=== PATIENT | female | born 1955 | race Caucasian/White ===

== ENCOUNTER 2018-11-11 12:47 | Emergency (ER) | payer OTHER ==
[~2018-11-11] VITALS: Ht 170.2 cm; Wt 127.0 kg
--- NOTE | 2018-11-11 13:12 | ED Lower Extremity ---
General Chief Complaint: Lower Extremity Stated Complaint: RT ANKLE PAIN Nursing Triage Note: Patient c/o right ankle pain. States she did a lot of walking yesterday but there was no obvious injury to the ankle. Today she states that her ankle is so painful she cannot bear weight and it is painful at the very slightest of touch. Nursing Sepsis Screen: No Definite Risk Source: patient, family Exam Limitations: no limitations History of Present Illness Date Seen by Provider: Nov 11, 2018 Time Seen by Provider: 13:09 Initial Comments 61-year-old white female presents with complaint of right ankle pain. Patient walked extensively on the previously fractured right ankle yesterday and had severe pain today precipitating her presentation to the emergency department. Past medical history of significance includes a history of gout. Patient takes medications on a daily basis to prevent the flare of the gout. Allergies and Home Medications Allergies Coded Allergies: prochlorperazine (Verified Allergy, Unknown, 11/11/18) Patient Home Medication List Home Medication List Reviewed: Yes Review of Systems Constitutional: No chills, No fever EENTM: no symptoms reported Respiratory: no symptoms reported Cardiovascular: no symptoms reported Gastrointestinal: no symptoms reported Genitourinary: no symptoms reported Musculoskeletal: No back pain; joint pain (ankle) Skin: no symptoms reported; No change in color, No rash Psychiatric/Neurological: No Symptoms Reported Past Jobvwgx-Kochvj-Gwlttt Hx Past Med/Social Hx: Reviewed Nursing Past Med/Soc Hx Patient Social History Recent Foreign Travel: No Contact w/Someone Who Travel: No Recent Infectious Disease Expo: No Physical Exam Vital Signs Vital Signs - First Documented 11/11/18 12:52 Temp 98.2 Pulse 91 Resp 18 B/P (MAP) 142/65 (90) Pulse Ox 95 O2 Delivery Room Air Capillary Refill : Less Than 3 Seconds Height, Weight, BMI Height: 5'7.00" Weight: 280lbs. oz. 127.858069dv; BMI Method:Stated General Appearance: WD/WN, mild distress Neck: normal inspection Cardiovascular: regular rate, rhythm Respiratory: no respiratory distress Ankles: right ankle pain Neurologic/Tendon: normal sensation, normal motor functions Neurologic/Psychiatric: no motor/sensory deficits, alert Skin: normal color, warm/dry Progress/Results/Core Measures Results/Orders Lab Results Laboratory Tests Test 11/11/18 13:25 Range/Units My Orders Orders - CA SHAIKH MD Fentanyl Injection (Sublimaze Injection (11/11/18 13:15) Uric Acid (11/11/18 13:06) Erythrocyte Sedimentation Rate (11/11/18 13:06) Cbc With Automated Diff (11/11/18 13:06) Ankle 3 View Right (11/11/18 13:06) Medications Given in ED Current Medications Medications Dose Ordered Sig/Meir Route Start Time Stop Time Status Last Admin Dose Admin Fentanyl Citrate 50 mcg ONCE ONCE IM 11/11/18 13:15 11/11/18 13:16 DC 11/11/18 13:19 50 MCG Vital Signs/I&O 11/11/18 12:52 Temp 98.2 Pulse 91 Resp 18 B/P (MAP) 142/65 (90) Pulse Ox 95 O2 Delivery Room Air Blood Pressure Mean: 90 Progress Progress Note : Time: 14:24 Progress Note X-ray of the right ankle demonstrated severe degenerative changes but no fracture. Patient received 50 g of fentanyl IM with significant improvement in her pain. Departure Impression Primary Impression: Ankle pain Qualified Codes: M25.571 - Pain in right ankle and joints of right foot Disposition: HOME, SELF-CARE Condition: Improved Departure-Patient Inst. Decision time for Depature: 14:25 Referrals: YUN JEAN (PCP) Primary Care Physician Patient Instructions: Osteoarthritis Add. Discharge Instructions: Vicodin for pain. Ice alternating with moist heat to the ankle. Close follow- up with your caregiver on Monday. Return if any problems or questions. Limit weightbearing. All discharge instructions reviewed with patient and/or family. Voiced understanding. Scripts Hydrocodone/Acetaminophen (Vicodin 5-300 mg Tablet) 1 Each Tablet 1-2 EACH PO Q6H PRN for PAIN-MODERATE MDD 10 for 7 Days, #20 TAB Prov: CA SHAIKH MD 11/11/18 CA SHAIKH MD Nov 11, 2018 13:11
[2018-11-11] MEDS ORDERED: fentaNYL INJECTION 100 MCG/2 ML AMP IM ONE (13:15)
--- NOTE | 2018-11-11 14:09 | Diagnostic Imaging Report ---
EXAMINATION: Right ankle radiographs, 3 views. COMPARISON: None. HISTORY: 63-year-old female, right ankle pain. FINDINGS: There are well-corticated ossifications adjacent to the distal fibula most likely relating to sequela of remote prior injury. There are also well-corticated areas of ossification adjacent to the medial malleolus likely relating to sequela of remote prior injury. The alignment of the ankle mortise is unremarkable. There is severe tibiotalar joint space loss with ossified intra-articular body posteriorly measuring 9 x 9 mm in size. There appear to be advanced posterior subtalar arthritic changes. There is no large tibiotalar joint effusion. There is no identified acute fracture. There is a very small calcaneal heel spur. IMPRESSION: 1. 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 2. Advanced posterior subtalar arthritis. 3. Well-corticated ossifications adjacent to the distal fibula medial malleolus compatible with sequela of remote prior injury. 4. No identified acute fracture or bone malalignment. Dictated by: Dictated on workstation # [id number]
[2018-11-11] MEDS ORDERED: HYDR-3455 PO (14:27)
[2018-11-11 14:50] VITALS: BP 142/65
[2018-11-11 14:54] LABS: BASOPHILS % (AUTO) 0 % (0-10); EOSINOPHILS % (AUTO) 1 % (0-10); HEMATOCRIT 43 % (35-52); LYMPHOCYTES % (AUTO) 30 % (12-44); MEAN CORPUSCULAR HEMOGLOBIN 30 PG (25-34); MEAN CORPUSCULAR HGB CONC 33 G/DL (32-36); MEAN CORPUSCULAR VOLUME 91 FL (80-99); MEAN PLATELET VOLUME 9.5 FL (7.4-10.4); MONOCYTES % (AUTO) 7 % (0-12); NEUTROPHILS # (AUTO) 8.1 X 10^3 (1.8-7.8); NEUTROPHILS % (AUTO) 61 % (42-75); PLATELET COUNT 335 10^3/uL (130-400); RED CELL DISTRIBUTION WIDTH 13.4 % (10.0-14.5); WHITE BLOOD COUNT 13.3 10^3/uL (4.3-11.0)
[2018-11-11 14:55] LABS: EOSINOPHILS # (AUTO) 0.2 10^3/uL (0.0-0.3); MONOCYTES # (AUTO) 0.9 X 10^3 (0.0-1.0)
[2018-11-11 15:14] LABS: ERYTHROCYTE SEDIMENTATION RATE 35 MM/HR (0-30)
== END 2018-11-11 14:50 | disposition home or self-care (01) ==
LOC: ER FS 12:49
DX: M25.571 Pain in right ankle and joints of right foot (principal); Z88.8 Allergy status to other drugs, medicaments and biological substances
CPT/HCPCS: 36415; 73610; 84550; 85025; 85652

== ENCOUNTER → 2018-11-27 | Outpatient (CLI) | payer OTHER ==
[~2018-11-27] MED LIST: HYDR-3455 PO
--- NOTE | 2018-11-27 17:28 | Diagnostic Imaging Report ---
INDICATION: Routine screening. COMPARISON: No prior mammograms are available for comparison. The current study was also evaluated with a Computer Aided Detection (CAD) system. 3-D tomosynthesis was also performed and reviewed. FINDINGS: No mass or malignant-appearing microcalcifications are seen. Axillae are unremarkable. IMPRESSION: No mammographic features suspicious for malignancy are identified. ACR BI-RADS Category 1: Negative. Result letter will be mailed to the patient. Note: At least 10% of breast cancer is not imaged by mammography. Dictated by: Dictated on workstation # [id number]
== END ==
LOC: RAD 09:22
PROVIDERS: ATTEND Nurse Practitioner
DX: Z12.31 Encounter for screening mammogram for malignant neoplasm of breast (principal)
CPT/HCPCS: 77067

== ENCOUNTER 2020-01-14 06:43 | Outpatient (RCR) | payer OTHER ==
[~2020-01-14] VITALS: Ht 170.2 cm; Wt 122.7 kg
[2020-01-14] MEDS ORDERED: ALLO100T PO (10:47)
[2020-01-14] MEDS ORDERED: ACHD5005 PO (10:47)
[2020-01-14] MEDS ORDERED: LOSA100T57 PO (10:47)
[2020-01-14] MEDS ORDERED: METF-865 PO ×2 (10:47)
[2020-01-14] MEDS ORDERED: VENL100T2 PO (10:47)
[2020-01-14] MEDS ORDERED: CYCL10TA9 PO (10:47)
[2020-01-14] MEDS ORDERED: ACET-168 PO (10:47)
[2020-01-14] MEDS ORDERED: ATOR40TA70 PO (10:47)
[2020-01-14] MEDS ORDERED: LEVO88TA54 PO (10:47)
[2020-01-14] MEDS ORDERED: MELA1TAB27 PO (10:47)
[2020-01-14] MEDS ORDERED: SERT100T8 PO (10:47)
[2020-01-14] MEDS ORDERED: OMEP20CA18 PO (10:47)
== END 2020-01-14 10:50 | disposition home or self-care (01) ==
LOC: PREOP 06:43
PROVIDERS: ATTEND Specialist
DX: Z01.818 Encounter for other preprocedural examination (principal)

== ENCOUNTER → 2020-01-15 | Outpatient (CLI) | payer OTHER ==
[~2020-01-15] MED LIST changes: +ACET-168 PO; +ACHD5005 PO; +ALLO100T PO; +ATOR40TA70 PO; +CYCL10TA9 PO; +LEVO88TA54 PO; +LOSA100T57 PO; +MELA1TAB27 PO; +METF-865 PO; +OMEP20CA18 PO; +SERT100T8 PO; +VENL100T2 PO
== END ==
LOC: LAB FS 10:00
PROVIDERS: ATTEND Specialist
DX: Z01.812 Encounter for preprocedural laboratory examination (principal); Z20.828 Contact with and (suspected) exposure to other viral communicable diseases
CPT/HCPCS: 87635

== ENCOUNTER 2020-01-17 06:47 | Day surgery (SDC) | payer OTHER ==
[~2020-01-17] VITALS: Ht 170 cm; Wt 122.0 kg
[2020-01-17] MEDS ORDERED: POVIDONE (BETADINE) OPHTH SOLN 5% 30 ML OP ONE (07:00)
[2020-01-17] MEDS ORDERED: MOXIFLOXACIN OPHTH SOLN 5 MG/ML 0.3 ML SYRINGE OP ONE (07:00)
[2020-01-17] MEDS ORDERED: LIDOCAINE PF 1% 2 ML VIAL IR PRN (07:00)
[2020-01-17] MEDS ORDERED: TIMOLOL MALEATE 0.5% 5 ML (TIMOPTIC) BTL OU PRN (07:00)
[2020-01-17 07:16] VITALS: BP 122/90
[2020-01-17] MEDS: TETRACAINE 0.5% OPHTH SOLN 4 ML BTL (SINGLE DOSE ONLY) OU PRN ×4 (07:22→07:40)
[2020-01-17] MEDS: PHENYLEPHRINE 10% OPHTH (NEO-SYN) 5 ML BTL OU SCH ×3 (07:30→07:40)
[2020-01-17] MEDS: TROPICAMIDE 1% OPH SOLN (MYDRIACYL) 15 ML BTL OP SCH ×3 (07:30→07:40)
[2020-01-17] MEDS ORDERED: MIDAZOLAM 2 MG/2 ML (VERSED) VIAL ONE (08:08)
--- NOTE | 2020-01-17 08:15 | Ophthalmologist Pre-Op Note ---
Pre-Operative Progress Note H&P Reviewed The H&P was reviewed, patient examined and no changes noted. Date H&P Reviewed: Jan 17, 2020 Time H&P Reviewed: 08:15 Pre-Op Dx Cataract, Right Eye HARPAL GILLESPIE MD Jan 17, 2020 08:15
[2020-01-17] MEDS ORDERED: acetaZOLAMIDE ER 500 MG CAP (DIAMOX SEQUELS) PO ONE (08:30)
--- NOTE | 2020-01-17 08:37 | Ophthalmology Operative Report ---
Cataract removal/placement IOL PREOPERATIVE DIAGNOSIS: Cataract Right Eye POSTOPERATIVE DIAGNOSIS: Cataract Right Eye PROCEDURE: Cataract removal and placement of posterior chamber implant, right eye SURGEON: Jose Gillespie ANESTHESIA: Topical with sedation COMPLICATIONS: None ESTIMATED BLOOD LOSS: Minimal DESCRIPTION OF PROCEDURE: After proper informed consent was obtained, the patient, a 64 female, was taken to the Operating Room and the right eye was anesthetized with tetracaine. The right eye was then prepped and draped in the usual manner. A wire lid speculum was placed. A paracentesis was made at the left hand position. Preservative free lidocaine was injected into the anterior chamber followed by viscoelastic. A clear corneal incision was made in the temporal position. A capsulorrhexis was preformed and the central nuclear and cortical material were removed. The posterior capsule was polished and Kai 25.5 AU00T0 IOL was placed into the capsular bag. The residual viscoelastic was aspirated and balanced saline solution was injected into the anterior chamber. Moxifloxacin was injected into the anterior chamber. The wound was checked and found to be water tight. The patient tolerated the procedure well without complications. JOSE GILLESPIE MD Jan 17, 2020 08:37
[2020-01-17 08:42] VITALS: BP 134/74
--- NOTE | 2020-01-17 12:19 | Anesthesia-General Post-Op ---
MAC Patient Condition Mental Status/LOC: Same as Preop Cardiovascular: Satisfactory Nausea/Vomiting: Absent Respiratory: Satisfactory Pain: Controlled Complications: Absent Post Op Complications Complications None Follow Up Care/Instructions Patient Instructions None needed. Anesthesiology Discharge Order Discharge Order Patient is doing well, no complaints, stable vital signs, no apparent adverse anesthesia problems. No complications reported per nursing. YOLANDA CABRAL CRNA Jan 17, 2020 12:19
== END 2020-01-17 08:47 ==
LOC: SDC 06:47
PROVIDERS: ATTEND Specialist
DX: H25.11 Age-related nuclear cataract, right eye (principal); E11.36 Type 2 diabetes mellitus with diabetic cataract; I10 Essential (primary) hypertension; F32.9 Major depressive disorder, single episode, unspecified; K21.9 Gastro-esophageal reflux disease without esophagitis; M06.9 Rheumatoid arthritis, unspecified; E78.00 Pure hypercholesterolemia, unspecified; M19.90 Unspecified osteoarthritis, unspecified site; F17.210 Nicotine dependence, cigarettes, uncomplicated; Z90.710 Acquired absence of both cervix and uterus; Z79.84 Long term (current) use of oral hypoglycemic drugs; Z79.899 Other long term (current) drug therapy; Z88.8 Allergy status to other drugs, medicaments and biological substances; Z80.0 Family history of malignant neoplasm of digestive organs
CPT/HCPCS: 82962

== ENCOUNTER 2020-01-20 06:12 | Outpatient (RCR) | payer OTHER | END 2020-01-21 11:02 | disposition home or self-care (01) | LOC: PREOP 06:12 | PROVIDERS: ATTEND Specialist | DX: Z01.818 Encounter for other preprocedural examination (principal) ==

== ENCOUNTER → 2020-01-21 | Outpatient (CLI) | payer OTHER | LOC: LAB FS 09:55 | PROVIDERS: ATTEND Specialist | DX: Z01.812 Encounter for preprocedural laboratory examination (principal); Z20.828 Contact with and (suspected) exposure to other viral communicable diseases | CPT/HCPCS: 87635 ==

== ENCOUNTER 2020-01-24 07:21 | Day surgery (SDC) | payer OTHER ==
[~2020-01-24] VITALS: Ht 170.2 cm; Wt 122.7 kg
[2020-01-24] MEDS ORDERED: TIMOLOL MALEATE 0.5% 5 ML (TIMOPTIC) BTL OU PRN (08:00)
[2020-01-24] MEDS: TETRACAINE 0.5% OPHTH SOLN 4 ML BTL (SINGLE DOSE ONLY) OU PRN ×4 (08:00→08:17)
[2020-01-24] MEDS ORDERED: LIDOCAINE PF 1% 2 ML VIAL IR PRN (08:00)
[2020-01-24] MEDS ORDERED: MOXIFLOXACIN OPHTH SOLN 5 MG/ML 0.3 ML SYRINGE OP ONE (08:00)
[2020-01-24] MEDS ORDERED: POVIDONE (BETADINE) OPHTH SOLN 5% 30 ML OP ONE (08:00)
[2020-01-24] MEDS: PHENYLEPHRINE 10% OPHTH (NEO-SYN) 5 ML BTL OU SCH ×3 (08:06→08:17)
[2020-01-24] MEDS: TROPICAMIDE 1% OPH SOLN (MYDRIACYL) 15 ML BTL OP SCH ×3 (08:06→08:17)
[2020-01-24 08:12] VITALS: BP 145/73
[2020-01-24] MEDS ORDERED: MIDAZOLAM 2 MG/2 ML (VERSED) VIAL ONE (08:47)
[2020-01-24] MEDS ORDERED: acetaZOLAMIDE ER 500 MG CAP (DIAMOX SEQUELS) PO ONE (09:00)
--- NOTE | 2020-01-24 09:01 | Ophthalmologist Pre-Op Note ---
Pre-Operative Progress Note H&P Reviewed The H&P was reviewed, patient examined and no changes noted. Date H&P Reviewed: Jan 24, 2020 Time H&P Reviewed: 09:01 Pre-Op Dx Cataract, Left Eye HARPAL GILLESPIE MD Jan 24, 2020 09:01
--- NOTE | 2020-01-24 09:24 | Ophthalmology Operative Report ---
Cataract removal/placement IOL PREOPERATIVE DIAGNOSIS: Cataract Left Eye POSTOPERATIVE DIAGNOSIS: Cataract Left Eye PROCEDURE: Cataract removal and placement of posterior chamber implant, left eye SURGEON: Jose Gillespie ANESTHESIA: Topical with sedation COMPLICATIONS: None ESTIMATED BLOOD LOSS: Minimal DESCRIPTION OF PROCEDURE: After proper informed consent was obtained, the patient, a 64 female, was taken to the Operating Room and the left eye was anesthetized with tetracaine. The left eye was then prepped and draped in the usual manner. A wire lid speculum was placed. A paracentesis was made at the left hand position. Preservative free lidocaine was injected into the anterior chamber followed by viscoelastic. A clear corneal incision was made in the temporal position. A capsulorrhexis was preformed and the central nuclear and cortical material were removed. The posterior capsule was polished and an Kai 25.5 AU00T0 was placed into the capsular bag. The residual viscoelastic was aspirated and balanced saline solution was injected into the anterior chamber. Moxifloxacin was injected into the anterior chamber. The wound was checked and found to be water tight. The patient tolerated the procedure well without complications. JOSE GILLESPIE MD Jan 24, 2020 09:24
[2020-01-24 09:35] VITALS: BP 152/77
--- NOTE | 2020-01-24 09:55 | Anesthesia-General Post-Op ---
MAC Patient Condition Mental Status/LOC: Same as Preop Cardiovascular: Satisfactory Nausea/Vomiting: Absent Respiratory: Satisfactory Pain: Controlled Complications: Absent Post Op Complications Complications None Follow Up Care/Instructions Patient Instructions None needed. Anesthesiology Discharge Order Discharge Order Patient is doing well, no complaints, stable vital signs, no apparent adverse anesthesia problems. No complications reported per nursing. JD GAN CRNA Jan 24, 2020 09:55
== END 2020-01-24 09:35 | disposition home or self-care (01) ==
LOC: SDC 07:21
PROVIDERS: ATTEND Specialist
DX: H25.12 Age-related nuclear cataract, left eye (principal); E11.36 Type 2 diabetes mellitus with diabetic cataract; I10 Essential (primary) hypertension; F32.9 Major depressive disorder, single episode, unspecified; K21.9 Gastro-esophageal reflux disease without esophagitis; M06.9 Rheumatoid arthritis, unspecified; E78.00 Pure hypercholesterolemia, unspecified; F17.210 Nicotine dependence, cigarettes, uncomplicated; Z79.899 Other long term (current) drug therapy; Z79.84 Long term (current) use of oral hypoglycemic drugs; Z88.8 Allergy status to other drugs, medicaments and biological substances; Z80.0 Family history of malignant neoplasm of digestive organs
CPT/HCPCS: 82962

== ENCOUNTER → 2020-05-05 | Outpatient (CLI) | payer OTHER ==
[~2020-05-05] MED LIST changes: +SERT-414 PO; -SERT100T8 PO
--- NOTE | 2020-05-05 13:20 | Diagnostic Imaging Report ---
Indication: Routine screening. Comparison is made with prior mammogram from 11/27/2018. 2-D and 3-D bilateral screening mammography was performed CAD. Both breast are heterogeneously dense, limiting the sensitivity of mammography. There are benign calcifications in both breasts. No mass or malignant appearing microcalcifications are seen. Axillae are unremarkable. IMPRESSION: BI-RADS Category 2 No mammographic features suspicious for malignancy are identified. ACR BI-RADS Category 2: Benign findings. Result letter will be mailed to the patient. Note: At least 10% of breast cancer is not imaged by mammography. Dictated by: Dictated on workstation # [id number]
== END ==
LOC: RAD 09:00
PROVIDERS: ATTEND Nurse Practitioner
DX: Z12.31 Encounter for screening mammogram for malignant neoplasm of breast (principal)
CPT/HCPCS: 77063; 77067

== ENCOUNTER → 2021-05-11 | Outpatient (CLI) | payer OTHER ==
[~2021-05-11] MED LIST changes: +CYCL10TA25 PO; -CYCL10TA9 PO
--- NOTE | 2021-05-11 14:01 | Diagnostic Imaging Report ---
INDICATION: Routine screening. COMPARISON: 05/05/2020 and 11/27/2018. TECHNIQUE: 2D and 3D bilateral screening mammography was performed with CAD. FINDINGS: Both breasts are heterogeneously dense, limiting the sensitivity of mammography. The parenchymal pattern is stable. No mass or malignant-appearing microcalcifications are seen. Axillae are unremarkable. IMPRESSION: No mammographic features suspicious for malignancy are identified. ACR BI-RADS Category 1: Negative. Result letter will be mailed to the patient. Note: At least 10% of breast cancer is not imaged by mammography. Dictated by: Dictated on workstation # [id number]
== END ==
LOC: RAD 10:30
PROVIDERS: ATTEND Nurse Practitioner
DX: Z12.31 Encounter for screening mammogram for malignant neoplasm of breast (principal)
CPT/HCPCS: 77063; 77067